=== PATIENT | female | born 1940 | race Caucasian/White ===

== ENCOUNTER → 2018-03-13 | Outpatient (CLI) | payer MEDICARE, OTHER ==
[2018-03-13 09:28] LABS: HEMOGLOBIN 12.8 G/DL (11.5-16.0); RED BLOOD COUNT 3.99 10^6/uL (4.35-5.85); RED CELL DISTRIBUTION WIDTH 13.3 % (10.0-14.5); WHITE BLOOD COUNT 5.1 10^3/uL (4.3-11.0)
[2018-03-13 09:54] LABS: ALBUMIN 4.2 GM/DL (3.2-4.5); BILIRUBIN,DIRECT 0.4 MG/DL (0.0-0.3); BILIRUBIN,INDIRECT 0.6 MG/DL; TOTAL PROTEIN 6.8 GM/DL (6.4-8.2)
== END ==
LOC: LAB 09:10
PROVIDERS: ATTEND Surgery
DX: K80.20 Calculus of gallbladder without cholecystitis without obstruction (principal)
CPT/HCPCS: 36415; 80076; 82150; 83690; 85027

== ENCOUNTER 2018-03-19 12:40 | Outpatient (CLI) | payer MEDICARE, OTHER ==
[~2018-03-19] VITALS: Ht 157.5 cm; Wt 49.9 kg
[2018-03-19] MEDS ORDERED: LOVA40TA2 PO (12:46)
[2018-03-19] MEDS ORDERED: FISH1CAP15 PO (12:46)
[2018-03-19] MEDS ORDERED: CA C1TAB75 PO (12:46)
[2018-03-19] MEDS ORDERED: ASPI-586 PO (12:46)
[2018-03-19] MEDS ORDERED: MULT-35 PO (12:46)
== END 2018-03-19 12:56 | disposition home or self-care (01) ==
LOC: PREOP 12:40
PROVIDERS: ATTEND Surgery
DX: Z01.818 Encounter for other preprocedural examination (principal)

== ENCOUNTER 2018-03-21 08:28 | Day surgery (SDC) | payer MEDICARE, OTHER ==
[~2018-03-21] VITALS: Ht 157.5 cm; Wt 49.9 kg
[~2018-03-21 08:28] MED LIST: ASPI-586 PO; CA C1TAB75 PO; FISH1CAP15 PO; LOVA40TA2 PO; MULT-35 PO
[2018-03-21 08:32] VITALS: BP 126/64
[2018-03-21] MEDS ORDERED: metroNIDAZOLE 500MG/100ML IVPB 100 ML IV ONE (08:45)
[2018-03-21] MEDS ORDERED: ceFAZolin INJECTION 1,000 MG in NS (IVPB) 50 ML IV ONE (08:45)
--- NOTE | 2018-03-21 09:00 | Progress Note-Pre Operative ---
Pre-Operative Progress Note H&P Reviewed The H&P was reviewed, patient examined and no changes noted. Date Seen by Provider: Mar 12, 2018 Time Seen by Provider: 14:00 Date H&P Reviewed: Mar 21, 2018 Time H&P Reviewed: 09:00 Pre-Operative Diagnosis: Gallstones DIONE BRADY MD Mar 21, 2018 09:00
[2018-03-21] MEDS ORDERED: CATHETER FLUSH 10 ML SYR IV PRN (09:30)
[2018-03-21] MEDS: LACTATED RINGERS 1,000 ML IV PRN ×2 (10:10→13:51)
[2018-03-21] MEDS ORDERED: fentaNYL INJECTION 100 MCG/2 ML AMP ONE ×2 (10:27→13:42)
[2018-03-21] MEDS ORDERED: MIDAZOLAM 2 MG/2 ML (VERSED) VIAL ONE (10:28)
[2018-03-21] MEDS ORDERED: BUP/EPI 0.5% 1:200,000 (SENSORCAINE) 30 ML VIAL ONE (10:28)
[2018-03-21] MEDS ORDERED: ONDANSETRON 4 MG/2 ML (SDV) Z0FRAN ONE (12:08)
[2018-03-21] MEDS ORDERED: SEVOFLURANE (ULTANE) 15 ML INHAL SOLN ONE ×3 (12:08→13:37)
[2018-03-21] MEDS ORDERED: LIDOCAINE PF 2% 5 ML (XYLOCAINE) VIAL ONE (12:08)
[2018-03-21] MEDS ORDERED: ROCURONIUM 10 MG/ML 5 ML SYRINGE IV ONE (12:08)
[2018-03-21] MEDS ORDERED: proPOfol 200 MG/20 ML (DIPRIVAN) VIAL IV ONE (12:08)
[2018-03-21] MEDS ORDERED: NEOSTIGMINE 1 MG/ML 5 ML SYRINGE ONE (13:12)
[2018-03-21] MEDS ORDERED: GLYCOPYRROLATE 0.2 MG/ML (ROBINUL) 2 ML VIAL ONE (13:12)
[2018-03-21] MEDS ORDERED: KETOROLAC 30 MG/ML VIAL ONE (13:35)
--- NOTE | 2018-03-21 13:47 | Operative Report ---
Operative Report Date of Procedure/Surgery Mar 21, 2018 Surgeon (s) DIONE BRADY MD Manager Student Services (s): Jocelyn Munroe (Med Student III) Post-Operative Diagnosis Same Procedure Performed Robotic-assisted cholecystectomy Description of Procedure Anesthesia Type: General Estimated blood loss (mL): Minimal Specimen(s) collected/removed Gallbladder Description of the Procedure Indication for the procedure: This lady presented with symptomatic gallstones. Preoperative endoscopic ultrasound performed as part of GI evaluation was negative for choledocholithiasis. In addition, her liver function tests were normal as well. She was offered cholecystectomy using minimally invasive technique with robotic assistance. Informed consent was obtained after reviewing the operative details and complications of wound infection and bile leak. Description of the procedure: She was placed supine on the operating table and general anesthesia induced. A gram of Ancef and 500 mg of Flagyl were administered intravenously as prophylaxis against wound infection; sequential compression devices were placed around her legs, to minimize the risk of venous thrombosis. Abdomen was prepared and draped in the usual sterile manner. Due to previous abdominal surgery requiring a small upper midline incision, I elected to establish pneumoperitoneum using a Veress needle introduced over the left subcostal margin. Intra-abdominal pressure was maintained at 15 mmHg, using carbon dioxide insufflation. 5 mm trocar was placed and anatomy visualized seen the conventional, 5 mm laparoscope. There was no adhesion under the scar. Under direct view, I placed a 12 mm trocar over the infraumbilical region, followed by 2 additional 8 mm trocars along each side of the abdomen. The patient was then turned into reverse Trendelenburg position with the right side tilted up and the robotic system docked in place. The gallbladder was rather elongated. The fundus was retracted cephalad and pylorus of the stomach adherent to the body of the gallbladder taken down by sharp dissection using scissors. Eventually, I was able to grasp the infundibulum using Cadiere forceps and begin the dissection around Calot's triangle. Both cystic duct and the artery were delineated and controlled between locking clips. Cholecystectomy was completed using the hook cautery. The gallbladder was then placed in an Endo Catch bag and removed via the subumbilical trocar site. The fascia over this incision was closed using #1 Vicryl. Skin incisions were closed using 4-0 Vicryl, in a subcuticular fashion. 0.5 percent Marcaine with epinephrine was infiltrated along the incisions, both preemptively and at the conclusion of the operation. She tolerated the procedure well, was extubated in the operating room and taken to the recovery room in a stable Findings of the Procedure See op report Allergies and Home Medications Allergies Coded Allergies: No Known Drug Allergies (Unverified , 03/19/18) Home Medications Aspirin 81 Mg Tablet.dr, 81 MG PO DAILY, (Reported) Ca Carbonate/Vitamin D3/Vit K 1 Each Tab.chew, 1 EACH PO BID, (Reported) Fish Oil/Dha/Epa 1 Each Capsule, 1 EACH PO BID, (Reported) Lovastatin 40 Mg Tablet, 40 MG PO DAILY, (Reported) Multivitamin 1 Each Tablet, 1 EACH PO DAILY, (Reported) Patient Home Medication List Home Medication List Reviewed: Yes DIONE BRADY MD Mar 21, 2018 13:47
[2018-03-21] MEDS ORDERED: ACHD5005 PO (13:48)
--- NOTE | 2018-03-21 13:49 | Discharge Inst-Simple/Standard ---
Discharge Inst-Standard Discharge Medications New, Converted or Re-Newed RX: RX on Chart Patient Instructions/Follow Up Plan of Care/Instructions/FU: Band-Aids off in 48 hours. Incentive spirometry. Follow-up in 3 weeks. Activity as Tolerated: Yes Discharge Diet: No Restrictions DIONE BRADY MD Mar 21, 2018 13:49
[2018-03-21] MEDS ORDERED: morphine INJ 10 MG/ML 1ML (SYR OR VIAL) IVP ONE (14:00)
[2018-03-21] MEDS ORDERED: ONDANSETRON 4 MG/2 ML (SDV) Z0FRAN IVP PRN (14:00)
[2018-03-21] MEDS ORDERED: MEPERIDINE (DEMEROL) INJ 50 MG/ML IVP ONE (14:00)
[2018-03-21 14:56] VITALS: BP 158/70
--- NOTE | 2018-03-21 15:29 | Anesthesia-General Post-Op ---
General Patient Condition Mental Status/LOC: Same as Preop Cardiovascular: Satisfactory Nausea/Vomiting: Absent Respiratory: Satisfactory Pain: Controlled Complications: Absent Post Op Complications Complications None Follow Up Care/Instructions Patient Instructions None needed. Anesthesia/Patient Condition Patient Condition Patient was seen after the procedure and she was doing well, no complaints, stable vital signs, no apparent adverse anesthesia problems. SUE PIMENTEL DO Mar 21, 2018 15:29
[2018-03-21 15:30] VITALS: BP 157/72
[2018-03-21 16:00] VITALS: BP 146/75
[2018-03-21 16:20] VITALS: BP 146/75
== END 2018-03-21 16:20 | disposition home or self-care (01) ==
LOC: SDC 08:28
PROVIDERS: ATTEND Surgery
DX: K81.1 Chronic cholecystitis (principal); E80.4 Gilbert syndrome; Z79.82 Long term (current) use of aspirin; Z79.899 Other long term (current) drug therapy
CPT/HCPCS: 87081; 94664